=== PATIENT | female | born 1965 | race American Indian/Alaskan Native ===

== ENCOUNTER 2021-02-15 10:52 | Outpatient (CLI) | payer BC ==
--- NOTE | 2021-02-15 13:24 | Treadmill Report ---
DATE OF SERVICE: 02/15/2021 STRESS TEST REPORT This is a regular stress test report. REASON FOR TEST: Chest pain. The patient exercised for 8 minutes of a Colt protocol, reaching stage III and achieving 9 METs. Peak heart rate was 151. Peak blood pressure was 176/72. There was no chest pain. Test was stopped for fatigue. Baseline ECG was sinus rhythm. With exercise, there were no ST changes of ischemia. No significant dysrhythmias were noted. CONCLUSION: 1. Very good exercise capacity. 2. No chest pain, no ST changes of ischemia, no significant dysrhythmias. 3. This is a normal exercise ECG test. TID: [id number] RECEIPT: [id number] MARTHA/TRENA/AMINA
== END 2021-02-15 10:53 | disposition home or self-care (01) ==
LOC: CARD 10:52
PROVIDERS: ATTEND Internal Medicine Cardiovascular Disease
DX: R42 Dizziness and giddiness (principal)
CPT/HCPCS: 93017